=== PATIENT | female | born 1945 | race Caucasian/White ===

== ENCOUNTER 2019-09-08 14:29 | Emergency (ER) | payer BC ==
[~2019-09-08] VITALS: Ht 165.1 cm; Wt 83.9 kg
[2019-09-08 14:35] VITALS: BP 136/70
[2019-09-08] MEDS ORDERED: LIDOCAINE/PRILOCAINE 2.5% 5 GM TUBE TP ONE (15:00)
[2019-09-08] MEDS ORDERED: CLINDAMYCIN 150 MG CAP PO ONE (15:15)
[2019-09-08] MEDS ORDERED: BACITRACIN OINT 500 UNITS/GM PKT TP ONE (16:00)
[2019-09-08 16:14] VITALS: BP 136/70
== END 2019-09-08 16:15 | disposition home or self-care (01) ==
LOC: MED 14:29
DX: L03.019 Cellulitis of unspecified finger (principal); E11.9 Type 2 diabetes mellitus without complications; I10 Essential (primary) hypertension; Z88.0 Allergy status to penicillin
CPT/HCPCS: 99283

== ENCOUNTER 2021-08-23 11:47 | Emergency (ER) | payer BC ==
[~2021-08-23] VITALS: Ht 165.1 cm; Wt 74.4 kg
[2021-08-23 11:52] VITALS: BP 149/68
[2021-08-23] MEDS ORDERED: NACL 0.9% 1,000 ML IV ONE (12:15)
[2021-08-23] MEDS ORDERED: FAMOTIDINE 20 MG TAB PO ONE (12:15)
[2021-08-23] MEDS ORDERED: ACETAMINOPHEN EXTRA STRENGTH 500 MG TAB PO ONE (12:15)
[2021-08-23] MEDS ORDERED: ONDANSETRON 4 MG/2 ML VIAL IVP ONE (12:15)
--- NOTE | 2021-08-23 12:15 | NUR ---
75 y/o Female BIB self for C/O of recorded BS fluctuating from 50-70. PT states she feels" dizzy and nauseous" Pt denies any V/D/CP at this time.Pt is AOX4, able to make needs known. Abd is soft and non-tender. Passing flatus. Denies any LOC and vision changes. Skin is warm and dry to touch. pmh: DMII, para thyroid disease Allergy: PCN
[2021-08-23] MEDS ORDERED: ONDANSETRON 4 MG ODT PO ONE (12:20)
[2021-08-23 12:57] LABS: BASOPHILS % (AUTO) 0.7 % (0.0-2.0); EOSINOPHILS % (AUTO) 0.8 % (0.0-4.0); HEMATOCRIT 35.6 % (36-48); HEMOGLOBIN 12.1 g/dL (12.0-16.0); LYMPHOCYTES # (AUTO) 0.9 K/uL (2.5-16.5); LYMPHOCYTES % (AUTO) 20.3 % (20.5-51.1); MEAN CORPUSCULAR HEMOGLOBIN 29 pg (27-31); MEAN CORPUSCULAR HGB CONC 34 g/dL (33-37); MEAN CORPUSCULAR VOLUME 85.9 fL (80-94); MONOCYTES # (AUTO) 0.2 K/uL (0.8-1.0); MONOCYTES % (AUTO) 4.6 % (1.7-9.3); NEUTROPHILS # (AUTO) 3.4 K/uL (1.8-7.7); NEUTROPHILS % (AUTO) 73.6 % (42.2-75.2); PLATELET COUNT (AUTO) 169 K/uL (140-450); RED BLOOD CELL COUNT(AUTO) 4.14 MIL/uL (4.20-5.40); RED CELL DISTRIBUTION WIDTH 13.4 % (11.6-13.7); WHITE BLOOD COUNT (AUTO) 4.7 K/uL (4.8-10.8)
[2021-08-23 13:09] LABS: ALBUMIN 3.3 g/dL (3.4-5.0); ANION GAP 6.8 (8-16); ASPARTATE AMINOTRANSFERASE 14 U/L (15-37); CARBON DIOXIDE 29.9 mmol/L (21-32); CHLORIDE 105 mmol/L (98-107); CREATININE 1.4 mg/dL (0.6-1.3); GLUCOSE 54 mg/dL (74-106); LIPASE 147 U/L (73-393); POTASSIUM 4.7 mmol/L (3.5-5.1); SODIUM SERUM 137 mmol/L (136-145); TOTAL BILIRUBIN 0.2 mg/dL (0.0-1.0); UREA NITROGEN, BLOOD 31 mg/dL (7-18)
[2021-08-23] MEDS ORDERED: DEXTROSE 50% 50 ML SYR IVP ONE ×2 (13:34→13:35)
[2021-08-23] MEDS ORDERED: ONDA-188 PO (14:43)
--- NOTE | 2021-08-23 15:00 | NUR ---
Pt able to tolerate all PO at this time, including a sandwhich. Denies N/V at this time. No s/sx of hypoglycemia at this time.
[2021-08-23] MEDS ORDERED: LOPE-289 PO (15:11)
[2021-08-23 15:35] VITALS: BP 134/69
--- NOTE | 2021-08-23 15:35 | NUR ---
Patient discharged with v/s stable. Written and verbal after care instructions given and explained with teachback. Patient alert, oriented and verbalized understanding of instructions. Ambulatory with steady gait. All questions addressed prior to discharge. ID band removed. Patient advised to follow up with PMD. Rx of Loperamide/zofran given. Patient educated on indication of medication including possible reaction and side effects. Opportunity to ask questions provided and answered.
== END 2021-08-23 15:35 | disposition home or self-care (01) ==
LOC: MED 11:47
DX: A08.4 Viral intestinal infection, unspecified (principal); N17.9 Acute kidney failure, unspecified; E11.9 Type 2 diabetes mellitus without complications; I10 Essential (primary) hypertension; E21.3 Hyperparathyroidism, unspecified; Z88.0 Allergy status to penicillin; Z79.899 Other long term (current) drug therapy
CPT/HCPCS: 36415; 80053; 82948; 83690; 85025; 93005; 96374; 99284; Q0162